=== PATIENT | male | born 1950 | race Caucasian/White ===

== ENCOUNTER 2020-06-02 05:25 | Day surgery (SDC) | payer MEDICARE, SELFPAY ==
--- NOTE | 2020-06-02 | COLBX_PTH ---
PATIENT: MAT STOKES LOC: EN U#:[id number] AGE/SX: 70/M ROOM: RE06/02/[address]: Dr. Jay Guo MD : 1950 BED: DIS: 06/02/2020 SPEC #: [id number] RECD: 06/02/20 11:55 STATUS: SUNNY BRAXTONLisa #: [id number] SANTINO: 06/02/20 00:[address]: Jay Guo DEPT: SURGICAL PATHOLOGY RECD BY: Jed Yu ENTERED: 06/02/20 11:55 SP TYPE: COLON BX OTHR DR: Dr. Trey Caba MD Tissues: Sigmoid colon biopsy Procedures: Surgery Specimen Level IV HEADER OPERATION: Colonoscopy - open access (MOD) PRE-OP DIAGNOSIS: Screening for intestinal cancer TISSUE SUBMITTED: Mid sigmoid polyp biopsy MICROSCOPIC DIAGNOSIS Mid sigmoid polyp, biopsy: Fragments of colonic mucosa, no pathologic diagnosis. SJ:edison 06/05/20 MICROSCOPIC DESCRIPTION Slides are reviewed. GROSS DESCRIPTION Received in fixative is one container labeled with the patient's name and designated mid sigmoid polyp biopsy. The specimen consists of multiple irregular fragments of light lainez soft tissue that in aggregate measure 0.5 x 0.3 x 0.1 cm. The specimen is totally submitted in one cassette. / GEORGE:edison 06/02/20 TC:4 CPT: 99320
[2020-06-02 05:48] VITALS: BP 135/84; PULSE 100; RESP 16; TEMP 36.4; O2SAT 98; BMI 28.5
[2020-06-02] MEDS: Lactated Ringers 1,000 ML 100 ML IV (06:01)
--- NOTE | 2020-06-02 06:19 | PCM.HP.STD ---
Problem List (1) Screening for intestinal cancer Status: Acute History of Present Illness Date of Admission: 06/02/20 The patient is a 70 year old M presents for screening colonoscopy. He is absolutely unsure as to when he had his previous one. Perhaps 4 years ago. He claims that after his previous 1 he was instructed to get one in 3 years. He has a family history of colon cancer in an older brother. He himself has had polyps apparently on previous occasions. He denies bright red blood per rectum or melena. No abdominal pain. He states that he has a very tortuous colon that is extraordinarily difficult to maneuver. Past Medical History Allergies No Known Allergies Allergy (Verified 06/02/20 05:45) Home Medications: Ambulatory Orders Medication Instructions Recorded Lisinopril [Zestril] 40 mg PO DAILY 01/17/17 Multivitamins,Therapeutic 1 tablet PO DAILY 01/17/17 [Multivitamin] Simvastatin 20 mg PO QHS 01/17/17 Ascorbic Acid [Vitamin C] 2,000 mg PO DAILY 05/30/20 Calcium Carb/Mag Ox/Zinc Sulf [Cvs 1 each PO DAILY 05/30/20 [id number] Cplt] Cholecalciferol (Vitamin D3) 2,000 unit PO DAILY 05/30/20 [Vitamin D3] Cinnamon Bark [Cinnamon] 1,000 mg PO DAILY 05/30/20 Hydrochlorothiazide [Hctz] 25 mg PO DAILY 05/30/20 Mv,Iron,Mins/Folic Acid/Biotin 1 each PO DAILY 05/30/20 [Hair Formula Tablet] Primidone [Mysoline] 50 mg PO QHS 05/30/20 Ubidecarenone [Coq-10] 100 mg PO DAILY 05/30/20 Vit A/Vit C/Vit E/Zinc/Copper 1 each PO DAILY 05/30/20 [Vision Formula Softgel] Smoking Status: Never smoker Tobacco Use: Non-smoker - *Family History Sibling History Items: Cancer Review of Systems Constitutional: Denies: Fever Cardiovascular: Denies: Chest Pain Respiratory: Denies: Cough Gastrointestinal: Denies: Abdominal Pain, Melena Endocrine: Denies: Change in Body Habitus VTE Information - Inpt Only VTE Present on Admission: No - Physical Exam Vitals/I&O's: Vital Signs Temp Pulse Resp BP Pulse Ox 97.5 F L 100 16 135/84 H 98 03/26/21 05:48 06/02/20 05:48 06/02/20 05:48 06/02/20 05:48 06/02/20 05:48 Oxygen Delivery Method Room Air Weight: 192 lb 14.472 oz Body Mass Index (BMI) 28.5 General: Alert, Oriented x3, Cooperative HEENT: Atraumatic Lungs: Clear to auscultation, Normal air movement Cardiovascular: Regular rate, Regular Rhythm Abdomen: Soft, Non Tender Extremities: No Calf Tenderness Psych/Mental Status: Anxious Microbiology Past 72 Hours 06/01/20 09:45 Interface Orders SARS-CoV-2 Antigen (Rapid) - Final Current Medications Lactated Ringer's () 1,000 mls @ 100 mls/hr IV .Q10H [place] Last Admin: 06/02/20 06:01 Dose: 100 mls/hr Documented by: Assessment/Plan All Active Problems Screening for intestinal cancer (Acute) The patient presents via open access. I propose for him a colonoscopy with possible biopsy or polypectomy as indicated. He is aware of the technique, benefit, risk, alternatives. He has had an opportunity to ask and have questions answered. We will proceed as noted. Jay Guo M.D., F.A.C.S.
[2020-06-02 06:59] VITALS: BP 104/86; BP 115/70; BP 126/79; BP 128/75; BP 133/78; BP 135/98; BP 137/82; O2SAT 100
[2020-06-02 07:00] VITALS: BP 111/69; BP 135/84; PULSE 80; RESP 16; TEMP 36.3; O2SAT 96
--- NOTE | 2020-06-02 07:03 | OP.CCLET_ITS ---
06/02/2020 Trey Caba Re : Colonoscopy procedure for Galo Caba This procedure was performed on Tuesday, June 02, 2020. My impressions and recommendations are as follows: Impressions : - Non-thrombosed internal hemorrhoids, internal hemorrhoids that prolapse with straining, but spontaneously regress to the resting position (Grade II) and enlarged prostate found on digital rectal exam. - One 4 mm polyp in the mid sigmoid colon, removed with a cold biopsy forceps. Resected and retrieved. - Diverticulosis in the entire examined colon. - Tortuous colon. Small lipoma ascending colon Recommendations : - Discharge patient to home. - Resume previous diet. - Continue present medications. - Repeat colonoscopy in 5 years for surveillance based on pathology results. - Telephone my office for pathology results in 1 week. My findings are described in the full procedure note, which is enclosed. If I can be of further assistance, please feel free to contact me at Doctor phone number(s): Work: . Sincerely, Jay Guo MD 06/02/2020 7:02:37 AM This report has been signed electronically.
--- NOTE | 2020-06-02 07:03 | OP.COLON_ITS ---
Patient Name: Galo Lloyd Procedure Date: 06/02/2020 6:10 AM Date of : 1950 Age: 70 Procedure: Colonoscopy Indications: High risk colon cancer surveillance: Personal history of colonic polyps, Family history of colon cancer in a first-degree relative Providers: Jay Guo MD Referring MD: Trey Caba Medicines: Midazolam 5 mg IV, Meperidine 125 mg IV Patient Profile: Last Colonoscopy: more than 3 years ago. Complications: No immediate complications. Procedure: Pre-Anesthesia Assessment: - Prior to the procedure, a History and Physical was performed, and patient medications and allergies were reviewed. The patient's tolerance of previous anesthesia was also reviewed. The risks and benefits of the procedure and the sedation options and risks were discussed with the patient. All questions were answered, and informed consent was obtained. Prior Anticoagulants: The patient has taken no previous anticoagulant or antiplatelet agents. ASA Grade Assessment: II - A patient with mild systemic disease. After reviewing the risks and benefits, the patient was deemed in satisfactory condition to undergo the procedure. After I obtained informed consent, the scope was passed under direct vision. Throughout the procedure, the patient's blood pressure, pulse, and oxygen saturations were monitored continuously. The colonoscope was introduced through the anus and advanced to the cecum, identified by appendiceal orifice and ileocecal valve. The colonoscopy was somewhat difficult due to a tortuous colon. Successful completion of the procedure was aided by increasing the dose of sedation medication. The patient tolerated the procedure well. The quality of the bowel preparation was good. The ileocecal valve and the appendiceal orifice were photographed. Moderate Sedation: Moderate (conscious) sedation was administered by the endoscopy nurse and supervised by the endoscopist. The following parameters were monitored: oxygen saturation, heart rate, blood pressure, and response to care. Total physician intraservice time was 20 minutes. Scope In: 6:35:09 AM Scope Withdrawal Time 0 hours 12 minutes 16 seconds Scope Out: 6:55:52 AM Total Procedure Duration Time 0 hours 20 minutes 43 seconds Findings: The digital rectal exam findings include non-thrombosed internal hemorrhoids, internal hemorrhoids that prolapse with straining, but spontaneously regress to the resting position (Grade II) and enlarged prostate. Pertinent negatives include normal sphincter tone. A 4 mm polyp was found in the mid sigmoid colon. The polyp was sessile. The polyp was removed with a cold biopsy forceps. Resection and retrieval were complete. Multiple diverticula were found in the entire colon. The left colon was moderately tortuous. Advancing the scope required changing the patient to a supine position and using manual pressure. There was a small lipoma, in the mid ascending colon. Impression: - Non-thrombosed internal hemorrhoids, internal hemorrhoids that prolapse with straining, but spontaneously regress to the resting position (Grade II) and enlarged prostate found on digital rectal exam. - One 4 mm polyp in the mid sigmoid colon, removed with a cold biopsy forceps. Resected and retrieved. - Diverticulosis in the entire examined colon. - Tortuous colon. Small lipoma ascending colon Recommendation: - Discharge patient to home. - Resume previous diet. - Continue present medications. - Repeat colonoscopy in 5 years for surveillance based on pathology results. - Telephone my office for pathology results in 1 week. Procedure Code(s): --- Professional --- 52259, Colonoscopy, flexible; with biopsy, single or multiple 02263, 59, Moderate sedation services provided by the same physician or other qualified health critical care specialist performing the diagnostic or therapeutic service that the sedation supports, requiring the presence of an independent trained observer to assist in the monitoring of the patient's level of consciousness and physiological status; initial 15 minutes of intraservice time, patient age 5 years or older Diagnosis Code(s): --- Professional --- Z86.010, Personal history of colonic polyps D12.5, Benign neoplasm of sigmoid colon K64.1, Second degree hemorrhoids Z80.0, Family history of malignant neoplasm of digestive organs N40.0, Benign prostatic hyperplasia without lower urinary tract symptoms K57.30, Diverticulosis of large intestine without perforation or abscess without bleeding Q43.8, Other specified congenital malformations of intestine CPT copyright 2017 [employer]. All rights reserved. The codes documented in this report are preliminary and upon musical instruments assembler review may be revised to meet current compliance requirements. Jay Guo MD 06/02/2020 7:02:37 AM This report has been signed electronically. Number of Addenda: 0 Note Initiated On: 06/02/2020 6:10 AM
[2020-06-02 07:05] VITALS: BP 117/75; BP 135/84; PULSE 86; RESP 16; O2SAT 97
[2020-06-02 07:10] VITALS: BP 112/72; BP 135/84; PULSE 79; RESP 16; O2SAT 96
[2020-06-02 07:16] VITALS: BP 112/70; BP 135/84; PULSE 74; RESP 16; TEMP 36.6; O2SAT 96
== END 2020-06-02 07:51 | disposition home or self-care (01) ==
LOC: EN 05:26 → AC 05:26
PROVIDERS: PCP Family Medicine; Referring Provider Family Medicine; Visit Provider Surgery
PROC: 0DJD8ZZ Inspection of Lower Intestinal Tract, Via Natural or Artificial Opening Endoscopic (ICD-10-PCS; CPT 45378; principal; 2020-06-02 06:25)
DX: Z12.11 Encounter for screening for malignant neoplasm of colon (principal); K63.5 Polyp of colon; D17.79 Benign lipomatous neoplasm of other sites; K64.1 Second degree hemorrhoids; K57.30 Diverticulosis of large intestine without perforation or abscess without bleeding; Z20.828 Contact with and (suspected) exposure to other viral communicable diseases; Z86.010 Personal history of colon polyps; Z80.0 Family history of malignant neoplasm of digestive organs; Z87.19 Personal history of other diseases of the digestive system; N40.0 Benign prostatic hyperplasia without lower urinary tract symptoms
CPT/HCPCS: 45380; 87426; 88305; 99152; 99153; C9803; J7120

== ENCOUNTER 2020-10-20 10:59 | Emergency (ER) | payer MEDICARE, SELFPAY ==
[2020-10-20 11:00] VITALS: BP 156/87; PULSE 95; RESP 18; TEMP 36.9; O2SAT 97; BMI 29.6
--- NOTE | 2020-10-20 11:18 | ED.VIS.BACK ---
HPI History of Present Illness Chief Complaint: Back Informant: patient and spouse/S.O. Narrative Narrative: Patient is a 70-year-old male who presents to the emergency department for low back pain. This initially started yesterday. He states it is worse whenever walking. It does go down his left leg. He has had this before in the past. He denies any falls or trauma. No heavy lifting or inciting event this episode. He denies any urinary retention, saddle anesthesia. No fevers or chills. No numbness or weakness. No chest pain or shortness of breath. No abdominal pain. No change in bowel movements. No nausea/vomiting. He did take an Aleve prior to coming in and he is starting to feel better at this time. While sitting at rest his pain has completely gone away. Only ambulating seems to bring it on currently. [facility] Medical History (Updated 10/20/20 @ 11:[address] Luke Odom, ) Hyperlipidemia Hypertension Parkinson disease Home Medications lisinopril [Zestril] 40 mg PO DAILY 01/17/17 [History Last Taken 06/02/20] multivitamin with folic acid [Thera] 1 tab PO DAILY 01/17/17 [History Last Taken Unknown] simvastatin 20 mg PO QHS 01/17/17 [History Last Taken Unknown] ascorbic acid (vitamin C) 2,000 mg PO DAILY 05/30/20 [History Last Taken Unknown] calcium carb-mag ox-zinc sulf 1 each PO DAILY 05/30/20 [History Last Taken Unknown] cholecalciferol (vitamin D3) 2,000 unit PO DAILY 05/30/20 [History Last Taken Unknown] cinnamon bark 1,000 mg PO DAILY 05/30/20 [History Last Taken Unknown] coenzyme Q10 100 mg PO DAILY 05/30/20 [History Last Taken Unknown] hydrochlorothiazide 25 mg PO DAILY 05/30/20 [History Last Taken Unknown] mv,iron,min-folic acid-biotin 1 each PO DAILY 05/30/20 [History Last Taken Unknown] primidone 50 mg PO QHS 05/30/20 [History Last Taken Unknown] vitamins A,C,H-rkbp-ixiird 1 each PO DAILY 05/30/20 [History Last Taken Unknown] atorvastatin 40 mg PO DAILY 10/20/20 [History Last Taken Unknown] carbidopa-levodopa 1 tab PO DAILY 10/20/20 [History Last Taken Unknown] cyclobenzaprine 10 mg PO TID PRN #10 tablet 10/20/20 [Rx Last Taken Unknown] Allergy/AdvReac Type Severity Reaction Status Date / Time No Known Allergies Allergy Verified 10/20/20 11:02 Social History Smoking Status: Never smoker ROS ROS ED Constitutional Constitutional ED: Denies chills or fever(s) ENT ENT ED: Denies epistaxis or rhinorrhea Cardiovascular Cardiovascular: Denies chest pain or palpitations Respiratory/Chest Respiratory/Chest: Denies cough or dyspnea Gastrointestinal Gastrointestinal: Denies abdominal pain, diarrhea, nausea or vomiting Genitourinary Genitourinary ED: Denies dysuria, hematuria or urinary frequency Musculoskeletal Musculoskeletal: Denies neck pain Integumentary Denies rash Neurologic Neurologic: Denies dizziness, headache(s) or weakness EXAM Physical Exam Const Vital Signs: 10/20/20 11:00 Temperature 98.4 F Temperature Source Temporal Pulse Rate 95 Respiratory Rate 18 Blood Pressure 156/87 H Blood Pressure Mean 110 Pulse Ox 97 Oxygen Delivery Method Room Air Positive well nourished and well developed General Appearance ED: well developed and NAD HEENT Reports normocephalic, head/scalp atraumatic and moist mucous membranes Eyes PERRL and EOMs intact bilaterally Neck supple General: Negative for tenderness Chest Wall inspection of chest normal Resp normal respiratory effort and clear to auscultation bilaterally Auscultation: Negative for rales, rhonchi or wheezes Cardio regular rate, regular rhythm and no murmurs GI normal to inspection, nondistended, normoactive bowel sounds and non-tender Palpation: soft; Negative for guarding or rebound tenderness present Back/Spine no CVA tenderness, normal to inspection and no thoracic nor lumbar tenderness Back/Spine Narrative: Patient able to stand and walk around the room without significant difficulty. Lumbar Spine / Lower Back: straight leg raise negative bilaterally Extremity normal to inspection General Extremety ED: Negative for edema or tenderness General Extremity: Negative for edema Neuro no sensory deficits noted Sensorium / Orientation: alert Motor Exam: strength 5/5 throughout Psych mental status grossly normal Skin no rashes or lesions noted MDM MDM MDM Narrative Medical decision making narrative: Patient presents to the emergency department for low back pain rating down his left leg. He did take Aleve prior to coming in and is now feeling better. On arrival to the ED vital signs within normal limits. He is in no acute distress. He has a benign physical exam. I do not feel imaging is indicated at this time. Will recommend symptomatic treatment at home as this seems to be working for him. He is to follow-up with his PCP. Return precautions are reviewed. All questions are answered. He is given a prescription for Flexeril. He understand that this can make him tired and should not operate heavy machinery on this. Discharge Plan Triage Chief Complaint: Back ED Provider: Luke Odom Dx/Rx/DC Orders Clinical Impression: Low back pain Instructions: ED Back Pain (Acute or Chronic) Prescriptions: New cyclobenzaprine 10 mg tablet 10 mg PO TID PRN (Reason: Muscle Spasm) Qty: 10 RF: 0 No Action lisinopril [Zestril] 30 MG tablet 40 mg PO DAILY RF: 0 simvastatin 20 MG tablet 20 mg PO QHS RF: 0 multivitamin with folic acid [Thera] 1 TABLET tablet 1 tab PO DAILY RF: 0 primidone 50 MG tablet 50 mg PO QHS RF: 0 ascorbic acid (vitamin C) 1,000 MG tablet 2,000 mg PO DAILY RF: 0 hydrochlorothiazide 25 MG tablet 25 mg PO DAILY RF: 0 coenzyme Q10 100 MG capsule 100 mg PO DAILY RF: 0 cinnamon bark 500 MG capsule 1,000 mg PO DAILY RF: 0 vitamins A,C,T-mmgg-mffbmo 1 EACH capsule 1 each PO DAILY RF: 0 cholecalciferol (vitamin D3) 50 MCG tablet 2,000 unit PO DAILY RF: 0 calcium carb-mag ox-zinc sulf 1 EACH tablet 1 each PO DAILY RF: 0 mv,iron,min-folic acid-biotin 1 EACH tablet 1 each PO DAILY RF: 0 atorvastatin 40 mg tablet 40 mg PO DAILY RF: 0 carbidopa-levodopa 25-100 mg tablet 1 tab PO DAILY RF: 0 Primary Care Provider: Trey Caba Referrals: Trey Caba MD [Primary Care Provider] - 3-5 Days if not improving Disposition Disposition: Home, Self Care Discharge Date/Time: 10/20/20 11:29
== END 2020-10-20 11:29 | disposition home or self-care (01) ==
LOC: ED 11:22
PROVIDERS: Emergency Provider Emergency Medicine; PCP Family Medicine
DX: M54.5 Low back pain (principal); I10 Essential (primary) hypertension; G20 Parkinson's disease; E78.5 Hyperlipidemia, unspecified; Z79.899 Other long term (current) drug therapy
CPT/HCPCS: 99282